=== PATIENT | female | born 1995 | race American Indian/Alaskan Native ===

== ENCOUNTER 2018-06-19 21:31 | Emergency (ER) | payer SELFPAY ==
[2018-06-19 21:38] VITALS: BP 135/73
--- NOTE | 2018-06-19 22:22 | Emergency Department Report ---
ED Female HPI - General Chief complaint: Urogenital-Female Stated complaint: PELVIC PAIN Time Seen by Provider: 06/19/18 22:18 Source: patient Mode of arrival: Ambulatory Limitations: No Limitations - History of Present Illness MD Complaint: vaginal discharge, dysuria, possible STD -: Gradual, days(s) (11) Radiation: suprapubic Severity: mild Quality: cramping, dull Improves with: none Worsens with: none Are you Now?: No (had 2 positive home test and one neg test at clinic yesterday now confused) Associated Symptoms: vaginal discharge, dysuria. denies: vaginal bleeding, abdominal pain, nausea/vomiting, loss of appetite, shortness of breath, syncope, weakness - Related Data Allergies Allergy/AdvReac Type Severity Reaction Status Date / Time No Known Allergies Allergy Verified 06/19/18 21:42 ED Review of Systems ROS: Stated complaint: PELVIC PAIN Other details as noted in HPI Constitutional: denies: chills, fever Eyes: denies: eye pain, eye discharge, vision change ENT: denies: ear pain, throat pain Respiratory: denies: cough, shortness of breath, wheezing Cardiovascular: denies: chest pain, palpitations Endocrine: no symptoms reported Gastrointestinal: denies: abdominal pain, nausea, diarrhea Genitourinary: urgency, dysuria, discharge Musculoskeletal: denies: back pain, joint swelling, arthralgia Skin: denies: rash, lesions Neurological: denies: headache, weakness, paresthesias Psychiatric: denies: anxiety, depression Hematological/Lymphatic: denies: easy bleeding, easy bruising ED Past Medical Hx - Past Medical History Previous Medical History?: No - Surgical History Past Surgical History?: No - Social History Smoking Status: Never Smoker Substance Use Type: None ED Physical Exam - General Limitations: No Limitations General appearance: alert, in no apparent distress - Head Head exam: Present: atraumatic, normocephalic - Eye Eye exam: Present: normal appearance, PERRL, EOMI - ENT ENT exam: Present: normal exam, mucous membranes moist - Neck Neck exam: Present: normal inspection - Respiratory Respiratory exam: Present: normal lung sounds bilaterally. Absent: respiratory distress - Cardiovascular Cardiovascular Exam: Present: regular rate, normal rhythm. Absent: systolic murmur, diastolic murmur, rubs, gallop - GI/Abdominal GI/Abdominal exam: Present: soft, normal bowel sounds - External exam: Present: erythema. Absent: lesions, lacerations, ecchymosis, bleeding Speculum exam: Present: vaginal discharge Bi-manual exam: Present: normal bi-manual exam. Absent: cervical motion tendernes - Extremities Exam Extremities exam: Present: normal inspection - Back Exam Back exam: Present: normal inspection - Neurological Exam Neurological exam: Present: alert, oriented X3 - Psychiatric Psychiatric exam: Present: normal affect, normal mood - Skin Skin exam: Present: warm, dry, intact, normal color. Absent: rash ED Course Vital Signs 06/19/18 06/19/18 21:37 21:43 Temperature 98.8 F 98.8 F Pulse Rate 100 H 96 H Respiratory 18 18 Rate Blood Pressure 135/73 Blood Pressure 135/73 [Right] O2 Sat by Pulse 96 100 Oximetry ED Medical Decision Making - Medical Decision Making 22-year-old female past discharge which she states that respond to the initial Flagyl treatment was provided by her doctor for Drew with no with a phone consultation. Worried about an STD as it turns out from further discussion after I had advised her of her negative wet prep panel. She was also very concerned about a tendency tinnitus which yielded to be negative to date. This point, I will cover her with a Rocephin and Zithromax cocktail and about. He'll follow with BRAZING MACHINE TENDER for further evaluation. She also stated during our discussion, which she initially felt to mention that she just had a control removed from her right arm a few weeks ago and was a little bit frustrated as she had not yet had a period which was the primary reason for her so much she was . I advised her he did have a discussion about hormones and the fluctuation. He also is involved with limitation of control and I stressed again the importance of follow-up with an BRAZING MACHINE TENDER for definitive management and reevaluation. Also advised her to be patient with a onset of menses as she just had a recent removal of the Norplant from her right arm Critical care attestation.: If time is entered above; I have spent that time in minutes in the direct care of this critically ill patient, excluding procedure time. ED Disposition Clinical Impression: Vaginal discharge, Negative test Disposition: - TO HOME OR SELFCARE Is pt being admited?: No Does the pt Need Aspirin: No Condition: Stable Instructions: Vaginitis (ED) Referrals: JACE HARRISON MD [Primary Care Provider] - 3-5 Days [facility] [Provider Group] - 3-5 Days
[2018-06-19 22:46] LABS: HCG Qualitative,Urine Negative (Negative)
[2018-06-19 22:52] LABS: Bilirubin,Urine NEG (Negative); Blood,Urine NEG (Negative); Color,Urine Yellow (Yellow); Protein,Urine <15 mg/dL mg/dL (Negative); Urobilinogen,Urine < 2.0 mg/dL (<2.0)
[2018-06-20] MEDS ORDERED: ZITHROMAX PO STA (01:21)
[2018-06-20] MEDS ORDERED: ROCEPHIN IM STA (01:21)
[2018-06-20] MEDS ORDERED: XYLOCAINE 1% MPF 5 mL INFILTRATI ONE (01:21)
== END 2018-06-20 02:14 | disposition home or self-care (01) ==
LOC: ED 21:31
DX: N89.8 Other specified noninflammatory disorders of vagina (principal); Z32.02 Encounter for pregnancy test, result negative
CPT/HCPCS: 36415; 81001; 81025; 84702; 87210; 87591; 96372; 99284; J0696

== ENCOUNTER 2018-08-03 21:40 | Emergency (ER) | payer OTHER ==
[2018-08-03 23:50] LABS: Bilirubin,Urine NEG (Negative); Blood,Urine NEG (Negative); Color,Urine Yellow (Yellow); Mucus,Urine 3+ /HPF; Protein,Urine <15 mg/dL mg/dL (Negative); Urobilinogen,Urine < 2.0 mg/dL (<2.0)
[2018-08-04 00:04] LABS: HCG Qualitative,Urine Negative (Negative)
--- NOTE | 2018-08-04 01:41 | Emergency Department Report ---
ED Female HPI - General Chief complaint: Urogenital-Female Stated complaint: VAGINAL DISCHARGE RASH ODOR Time Seen by Provider: 08/04/18 00:12 Source: patient Mode of arrival: Ambulatory Limitations: No Limitations - History of Present Illness Initial comments: 22-year-old -Maldivian female presents to the emergency room for vaginal discharge rash and bleeding cramping and older 2 months. Patient reports that she was seen here in May and was told to try [id number] Monistat she's reports has not helped. Patient reports her last menstrual period was 07/22/2018. Patient reports she has not been sexually active since she was last seen here in May. She does report having a primary care provider but reports that she is not able to take also in the day at work so she has come tonight to be evaluated. MD Complaint: vaginal discharge -: month(s) (2) Quality: cramping Consistency: intermittent Improves with: none Worsens with: none Are you Now?: No Last Menstrual Period: 07/22/18 EDC: 04/28/19 Associated Symptoms: vaginal discharge - Related Data Sexually active: Yes : 0 Previous Rx's Medication Instructions Recorded Last Taken Type Fluconazole [Diflucan] 150 mg PO QDAY 1 Days #1 tablet 08/04/18 Unknown Rx metroNIDAZOLE [Metronidazole] 500 mg PO Q8H 7 Days #21 tablet 08/04/18 Unknown Rx Allergies Allergy/AdvReac Type Severity Reaction Status Date / Time No Known Allergies Allergy Verified 06/19/18 21:42 ED Review of Systems ROS: Stated complaint: VAGINAL DISCHARGE RASH ODOR Other details as noted in HPI Comment: All other systems reviewed and negative Genitourinary: discharge ED Past Medical Hx - Past Medical History Previous Medical History?: No - Surgical History Past Surgical History?: No - Social History Smoking Status: Never Smoker Substance Use Type: None - Medications Home Medications: Home Medications Medication Instructions Recorded Confirmed Last Taken Type Fluconazole [Diflucan] 150 mg PO QDAY 1 Days #1 tablet 08/04/18 Unknown Rx metroNIDAZOLE [Metronidazole] 500 mg PO Q8H 7 Days #21 tablet 08/04/18 Unknown Rx ED Physical Exam - General Limitations: No Limitations General appearance: alert, in no apparent distress - Head Head exam: Present: atraumatic, normocephalic - Eye Eye exam: Present: normal appearance - ENT ENT exam: Present: mucous membranes moist - Neck Neck exam: Present: normal inspection - Respiratory Respiratory exam: Present: normal lung sounds bilaterally. Absent: respiratory distress - Cardiovascular Cardiovascular Exam: Present: regular rate, normal rhythm. Absent: systolic murmur, diastolic murmur, rubs, gallop - GI/Abdominal GI/Abdominal exam: Present: soft, normal bowel sounds - External exam: Present: other (rash) Speculum exam: Present: vaginal discharge. Absent: erythema Bi-manual exam: Present: normal bi-manual exam - Extremities Exam Extremities exam: Present: full ROM - Back Exam Back exam: Present: normal inspection - Neurological Exam Neurological exam: Present: alert, oriented X3 - Psychiatric Psychiatric exam: Present: normal affect, normal mood - Skin Skin exam: Present: warm, dry, intact, normal color. Absent: rash ED Course Vital Signs 08/03/18 22:20 Temperature 98.1 F Pulse Rate 84 Respiratory 18 Rate Blood Pressure 122/69 O2 Sat by Pulse 98 Oximetry ED Medical Decision Making - Lab Data Laboratory Tests 08/03/18 Unknown Urine Color Yellow Urine Turbidity Clear Urine pH 5.0 Ur Specific [place] 1.034 H Urine Protein <15 mg/dl Urine Glucose (UA) Neg Urine Ketones Neg Urine Blood Neg Urine Nitrite Neg Urine Bilirubin Neg Urine Urobilinogen < 2.0 Ur Leukocyte Esterase Neg Urine WBC (Auto) 2.0 Urine RBC (Auto) 1.0 U Epithel Cells (Auto) 8.0 Urine Mucus 3+ Urine HCG, Qual Negative - Medical Decision Making Patient has been evaluated by this provider and [facility]. Patient went prep is positive for bacterial vaginosis and candidiasis. Patient will be treated accordingly Critical care attestation.: If time is entered above; I have spent that time in minutes in the direct care of this critically ill patient, excluding procedure time. ED Disposition Clinical Impression: Vaginitis and vulvovaginitis Disposition: DC-01 TO HOME OR SELFCARE Is pt being admited?: No Does the pt Need Aspirin: No Condition: Stable Instructions: Bacterial Vaginosis (ED), Vulvovaginal Candidiasis (ED) Additional Instructions: Please take medication as prescribed. Please follow-up with your primary care provider if her symptoms persist or gets worse. Prescriptions: Fluconazole [Diflucan] 150 mg PO QDAY 1 Days #1 tablet metroNIDAZOLE [Metronidazole] 500 mg PO Q8H 7 Days #21 tablet [facility] [Primary [facility] Provider[facility] - 3-5 Days
[2018-08-04 02:13] VITALS: BP 120/64
== END 2018-08-04 02:13 | disposition home or self-care (01) ==
LOC: ED 21:40
DX: N76.0 Acute vaginitis (principal)
CPT/HCPCS: 81001; 81025; 87210; 87591

== ENCOUNTER 2019-07-23 23:38 | Emergency (ER) | payer SELFPAY ==
[2019-07-24] MEDS ORDERED: SODIUM CHLORIDE 0.9% 1000 ML 1,000 ML IV ONE ×2 (00:22→01:50)
--- NOTE | 2019-07-24 00:23 | Emergency Department Report ---
ED Fever HPI - General Chief Complaint: Sore Throat Stated Complaint: SORE THROAT VOMITING FEVER CONSTIPATION Time Seen by Provider: 07/24/19 00:11 Source: patient Exam Limitations: no limitations - History of Present Illness Initial Comments: Patient is a 23-year-old female that presents emergency room with complaints of sore throat, nausea vomiting, fever. Patient states she is also having constipation. Patient denies abdominal pain. Patient denies blood in her vomitus. Patient states that she has not been able to hold anything down for 2 full days. Patient states her throat pain is a 10 out of 10. Patient states that it is worse with swallowing and eating. Patient states is better with rest. Patient states her fever is low-grade. Patient denies taking any type of [id number] medications. Patient denies travel outside the country. Patient denies contact with people who have traveled to [place]. Fever Severity/Quality: low grade Fever Therapy BUDGET CLERK: none Associated Symptoms: cough, nausea/vomiting, sore throat. denies: abdominal pain, chest pain, confusion, diaphoresis, headache, muscle aches, rash, shortness of breath, stiff neck, syncope, weakness ED Review of Systems ROS: Stated complaint: SORE THROAT VOMITING FEVER CONSTIPATION Other details as noted in HPI Constitutional: chills, fever Eyes: denies: eye pain, eye discharge, vision change ENT: throat pain. denies: ear pain Respiratory: cough. denies: shortness of breath, wheezing Cardiovascular: denies: chest pain, palpitations Endocrine: no symptoms reported Gastrointestinal: nausea, vomiting, constipation. denies: abdominal pain, diarrhea Genitourinary: denies: urgency, dysuria, discharge Musculoskeletal: denies: back pain, joint swelling, arthralgia Skin: denies: rash, lesions Neurological: denies: headache, weakness, paresthesias Psychiatric: denies: anxiety, depression Hematological/Lymphatic: denies: easy bleeding, easy bruising ED Past Medical Hx - Past Medical History Previous Medical History?: No - Surgical History Past Surgical History?: No - Family History Family history: no significant - Social History Smoking Status: Never Smoker Substance Use Type: None - Medications Home Medications: Home Medications Medication Instructions Recorded Confirmed Last Taken Type Fluconazole [Diflucan] 150 mg PO QDAY 1 Days #1 tablet 08/04/18 Unknown Rx metroNIDAZOLE [Metronidazole] 500 mg PO Q8H 7 Days #21 tablet 08/04/18 Unknown Rx Azithromycin [Zithromax Tri-Isidro] 500 mg PO DAILY 3 Days #3 tablet 07/24/19 Unknown Rx Ondansetron [Zofran Odt] 4 mg PO Q6HR PRN #20 tab.rapdis 07/24/19 Unknown Rx methylPREDNISolone [Medrol 4MG 4 mg PO DAILY 6 Days #1 tab.ds.pk 07/24/19 Unknown Rx DOSEPAK (21 tabs)] ED Physical Exam - General Limitations: No Limitations General appearance: alert, in no apparent distress - Head Head exam: Present: atraumatic, normocephalic - Eye Eye exam: Present: normal appearance - ENT ENT exam: Present: mucous membranes dry, other - Expanded ENT Exam Expanded Throat exam: Positive: tonsillar erythema, other (Oropharynx redness.). Negative: tonsillomegaly, tonsillar exudate, R peritonsillar mass, L peritonsillar mass - Neck Neck exam: Present: normal inspection - Respiratory Respiratory exam: Present: normal lung sounds bilaterally. Absent: respiratory distress, wheezes, rales, rhonchi, stridor, chest wall tenderness, accessory muscle use, decreased breath sounds - Cardiovascular Cardiovascular Exam: Present: regular rate, normal rhythm. Absent: systolic murmur, diastolic murmur, rubs, gallop - GI/Abdominal GI/Abdominal exam: Present: soft, normal bowel sounds - Extremities Exam Extremities exam: Present: normal inspection - Back Exam Back exam: Present: normal inspection - Neurological Exam Neurological exam: Present: alert, oriented X3 - Psychiatric Psychiatric exam: Present: normal affect, normal mood - Skin Skin exam: Present: warm, dry, intact, normal color. Absent: rash ED Course Vital Signs 07/23/19 07/24/19 07/24/19 23:45 00:15 00:30 Temperature 99.9 F H Pulse Rate 146 H 135 H 135 H Respiratory 18 13 25 H Rate Blood Pressure 118/80 143/87 127/83 O2 Sat by Pulse 95 97 96 Oximetry - Reevaluation(s) Reevaluation #1: Initial evaluation done. EKG shows sinus tachycardia. Patient will be given fluids. 07/24/19 00:11 Reevaluation #2: Full started and patient's heart rate is already decreased. 07/24/19 00:39 Heart rate at 125. Patient states she is feeling a little bit better. 07/24/19 01:03 Reevaluation #3: Patient's heart rate continues to improve. Patient states she does not have any vomiting but would like something to help with nausea and her throat pain. 07/24/19 01:49 Reevaluation #4: Patient states she is feeling much better. Patient denies fever. Patient den ies pain. Patient states her throat is almost pain-free. Patient stable for discharge. I discussed all results with patient. Discussed plan of care with patient. Patient agrees with plan of care. Patient will be discharged home. Patient stable for discharge. Patient given discharge instructions. Patient voiced understanding of discharge instructions. 07/24/19 03:23 ED Medical Decision Making - Lab Data Result diagrams: 07/24/19 00:32 07/24/19 00:32 - EKG Data -: EKG Interpreted by Me EKG shows normal: sinus rhythm, axis, intervals, QRS complexes, ST-T waves Rate: tachycardia - Medical Decision Making Patient is a 23-year-old female that presents emergency room with complaints of fever, sore throat, cough. Patient found to have a severely red throat on examination. Patient also found to have sinus tachycardia with a rate of 42 on initial EKG. Patient was given 2 L of fluids and her heart rate responded well. Patient's pain almost resolved just prior to discharge. Patient given a Z-Isidro and steroids for her pharyngitis. Patient's fever improved with treatment. Patient's labs essentially unremarkable. Patient's flu negative. Patient strep and mono negative. Patient stable for discharge and discharged home. - Differential Diagnosis URI, pharyngitis, strep, flu, tachycardia, dehydration Critical Care Time: Yes Critical care time in (mins) excluding proc time.: 35 Critical care attestation.: If time is entered above; I have spent that time in minutes in the direct care of this critically ill patient, excluding procedure time. Critical Care Time: 35 minutes ED Disposition Clinical Impression: Tachycardia, Sore throat, Dehydration, Nausea Pharyngitis Qualifiers: Pharyngitis/tonsillitis etiology: other specified organisms Qualified Code(s): J02.8 - Acute pharyngitis due to other specified organisms Fever Qualifiers: Fever type: unspecified Qualified Code(s): R50.9 - Fever, unspecified Disposition: DC-01 TO HOME OR SELFCARE Is pt being admited?: No Does the pt Need Aspirin: No Condition: Stable Instructions: Pharyngitis (ED), Fever in Adults (ED), Dehydration (ED) Additional Instructions: Patient to follow-up with primary care in 2 to 3 days. Patient to rest. Patient to increase water. Patient to take Tylenol or ibuprofen as needed for pain. Patient to take meds as directed. Patient to return to the ER if condition worsens, changes or new symptoms arise. Prescriptions: methylPREDNISolone [Medrol 4MG DOSEPAK (21 tabs)] 4 mg PO DAILY 6 Days #1 tab.ds.pk Azithromycin [Zithromax Tri-Siidro] 500 mg PO DAILY 3 Days #3 tablet Ondansetron [Zofran Odt] 4 mg PO Q6HR PRN #20 tab.rapdis PRN Reason: Nausea And Vomiting Referrals: NADJA SEGURA MD [Staff Physician] - 2-3 Days Time of Disposition: 03:30
[2019-07-24 00:57] LABS: Hematocrit 41.5 % (30.3-42.9); Hemoglobin 13.8 gm/dl (10.1-14.3); Mean Corpuscular HGB Conc 33 % (30-34); Mean Corpuscular Volume 80 fl (79-97); Platelet Count 201 K/mm3 (140-440); Red Blood Count 5.17 M/mm3 (3.65-5.03); Red Cell Distribution Width 13.3 % (13.2-15.2)
[2019-07-24 01:21] LABS: Alanine Aminotransferase 25 units/L (7-56); Albumin 4.5 g/dL (3.9-5); BUN/Creatinine Ratio 13; Blood Urea Nitrogen 9 mg/dL (7-17); Calcium 9.7 mg/dL (8.4-10.2); Hemolysis Index 7
[2019-07-24] MEDS ORDERED: KETOROLAC 30 MG/1 ML INJ IV ONE (01:50)
[2019-07-24] MEDS ORDERED: ONDANSETRON 4 MG/2 ML INJ IV ONE (01:50)
[2019-07-24] MEDS ORDERED: ONDANSETRON 4 MG/2 ML INJ ONE (01:51)
[2019-07-24 03:26] VITALS: BP 121/66
== END 2019-07-24 04:30 | disposition home or self-care (01) ==
LOC: ED 23:38
DX: E86.0 Dehydration (principal); R00.0 Tachycardia, unspecified; J02.9 Acute pharyngitis, unspecified; R50.9 Fever, unspecified; R11.2 Nausea with vomiting, unspecified; Z79.899 Other long term (current) drug therapy
CPT/HCPCS: 36415; 80053; 84703; 85027; 86308; 87116; 87400; 87430; 93005; 93010; 96361; 96374; 96375; 99283; J1885; J2405; J7030

== ENCOUNTER 2020-07-07 20:40 | Emergency (ER) | payer SELFPAY ==
[2020-07-07 22:11] LABS: Basophils % (Auto) 0.4 % (0.0-1.8); Eosinophils # (Auto) 0.2 K/mm3 (0.0-0.4); Hematocrit 44.5 % (30.3-42.9); Hemoglobin 14.7 gm/dl (10.1-14.3); Lymphocytes % (Auto) 25.4 % (13.4-35.0); Mean Corpuscular HGB Conc 33 % (30-34); Mean Corpuscular Volume 82 fl (79-97); Monocytes # (Auto) 0.6 K/mm3 (0.0-0.8); Monocytes % (Auto) 7.8 % (0.0-7.3); Platelet Count 256 K/mm3 (140-440); Red Blood Count 5.42 M/mm3 (3.65-5.03)
[2020-07-07 22:42] LABS: Alanine Aminotransferase 18 units/L (7-56); Albumin 4.9 g/dL (3.9-5); Blood Urea Nitrogen 13 mg/dL (7-17); Calcium 10.2 mg/dL (8.4-10.2); Hemolysis Index 3
[2020-07-07 22:43] LABS: BUN/Creatinine Ratio 22
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
[2020-07-07 22:58] LABS: Bilirubin,Urine NEG (Negative); Blood,Urine NEG (Negative); Color,Urine Yellow (Yellow); Mucus,Urine FEW /HPF; Protein,Urine <15 mg/dL mg/dL (Negative); Urobilinogen,Urine < 2.0 mg/dL (<2.0); WBC,Urine < 1.0 /HPF (0.0-6.0)
[2020-07-07 23:49] LABS: Creatine Kinase MB < 1.0 ng/mL (0.0-4.0)
--- NOTE | 2020-07-08 02:40 | Ultrasound Report ---
ULTRASOUND OBSTETRIC INDICATION / CLINICAL INFORMATION: , lower abdominal pain, syncope. TECHNIQUE: Transabdominal. COMPARISON: None available. FINDINGS: No IUP. ADNEXA: Complex right ovarian corpus luteal cyst measures 2.1 x 2.2 x 2.0 cm. Complex left ovarian co rpus luteal cyst measures 5.4 x 5.0 x 4.5 cm containing internal debris and septations. FREE FLUID: None. ADDITIONAL FINDINGS: None. IMPRESSION: 1. No visualized IUP. 2. Complex bilateral ovarian corpus luteal cysts Signer Name: Anuj Wayne MD Signed: 07/08/2020 2:35 AM Workstation Name: [id number]
[2020-07-08 03:32] VITALS: BP 115/81
== END 2020-07-08 03:28 ==
LOC: ED 20:40
DX: O26.891 Other specified pregnancy related conditions, first trimester (principal); R55 Syncope and collapse; Z79.899 Other long term (current) drug therapy; Z3A.01 Less than 8 weeks gestation of pregnancy
CPT/HCPCS: 36415; 76801; 80053; 81001; 82550; 82553; 83690; 84484; 84702; 84703; 85025; 85379; 93005

== ENCOUNTER 2020-07-20 12:21 | Emergency (ER) | payer OTHER ==
--- NOTE | 2020-07-20 14:04 | Emergency Department Report ---
<SWATHIJanieANNTeddy Rutherford - Last Filed: 07/20/20 14:02> ED Female HPI - General Chief complaint: Vaginal Bleeding Stated complaint: PREG/BLEEDING/SEEN HERE LAST WEEK Source: patient Mode of arrival: Ambulatory Limitations: No Limitations - History of Present Illness Initial comments: 24-year-old -[place] female who is 1 para 0 with a last m enstrual period of 06/13/2020 presents to the emergency room complaining of lower abdominal pain with vaginal spotting. Patient was seen here 2 weeks ago and was having very heavy menstrual bleeding. Patient never followed up with provider stating that her Medicaid was not active. Patient comes in complaining of burning with urination. MD Complaint: vaginal bleeding, pelvic pain - Related Data Previous Rx's Medication Instructions Recorded Last Taken Type Fluconazole [Diflucan] 150 mg PO QDAY 1 Days #1 tablet 08/04/18 Unknown Rx metroNIDAZOLE [Metronidazole] 500 mg PO Q8H 7 Days #21 tablet 08/04/18 Unknown Rx Azithromycin [Zithromax Tri-Isidro] 500 mg PO DAILY 3 Days #3 tablet 07/24/19 Unknown Rx Ondansetron [Zofran Odt] 4 mg PO Q6HR PRN #20 tab.rapdis 07/24/19 Unknown Rx methylPREDNISolone [Medrol 4MG 4 mg PO DAILY 6 Days #1 tab.ds.pk 07/24/19 Unknown Rx DOSEPAK (21 tabs)] cephALEXin [Keflex] 500 mg PO Q8HR #21 capsule 07/20/20 Unknown Rx Allergies Allergy/AdvReac Type Severity Reaction Status Date / Time No Known Allergies Allergy Verified 07/20/20 13:21 ED Review of Systems Comment: All other systems reviewed and negative ED Past Medical Hx - Past Medical History Previous Medical History?: No - Surgical History Past Surgical History?: No - Social History Smoking Status: Never Smoker Substance Use Type: None (Denies illicit drug use) - Medications Home Medications: Home Medications Medication Instructions Recorded Confirmed Last Taken Type Fluconazole [Diflucan] 150 mg PO QDAY 1 Days #1 tablet 08/04/18 Unknown Rx metroNIDAZOLE [Metronidazole] 500 mg PO Q8H 7 Days #21 tablet 08/04/18 Unknown Rx Azithromycin [Zithromax Tri-Isidro] 500 mg PO DAILY 3 Days #3 tablet 07/24/19 Unknown Rx Ondansetron [Zofran Odt] 4 mg PO Q6HR PRN #20 tab.rapdis 07/24/19 Unknown Rx methylPREDNISolone [Medrol 4MG 4 mg PO DAILY 6 Days #1 tab.ds.pk 07/24/19 Unknown Rx DOSEPAK (21 tabs)] cephALEXin [Keflex] 500 mg PO Q8HR #21 capsule 07/20/20 Unknown Rx ED Physical Exam - General Limitations: No Limitations ED Medical Decision Making - Medical Decision Making 24-year-old -[place] female who is 1 para 0 with a last menstrual period of 06/13/2020 presents to the emergency room complaining of lower abdominal pain with vaginal spotting. Patient was seen here 2 weeks ago and was having very heavy menstrual bleeding. Patient never followed up with provider stating that her Medicaid was not active. Patient comes in complaining of burning with urination. ED Disposition Clinical Impression: Threatened miscarriage in early , UTI (urinary tract infection) Disposition: TO HOME OR SELFCARE Condition: Stable Instructions: Urinary Tract Infection, Adult, [id number], Threatened Miscarriage, [id number] Additional Instructions: You can take tylenol as needed for pain. Take the antibiotics as prescribed. Follow up with [facility] in 2 days for repeat Quant HCG and repeat US, if unable to f/u return to ED in 2 days. Return sooner if symptoms worsens. Prescriptions: cephALEXin [Keflex] 500 mg PO Q8HR #21 capsule Referrals: PRIMARY CARE, [Primary Care Provider] - 3-5 Days Forms: Work/School Release Form(ED) <DARYL CASTRO - Last Filed: 07/21/20 02:13> ED Review of Systems ROS: Stated complaint: PREG/BLEEDING/SEEN HERE LAST WEEK Other details as noted in HPI ED Course Vital Signs 07/20/20 07/20/20 13:23 21:56 Temperature 98.4 F Pulse Rate 95 H 80 Respiratory 18 18 Rate Blood Pressure 131/76 Blood Pressure 124/84 [Right] O2 Sat by Pulse 100 100 Oximetry ED Medical Decision Making - Radiology Data Radiology results: report reviewed Findings [facility] [address] [place] [address] Ultrasound Report Signed Patient: JEAN CLAUDE GONZALEZ MR#: [id number] : 1995 Acct:[id number] Age/Sex: 24 / F ADM Date: 07/20/20 Loc: ED Attending Dr: Ordering Physician: TITI AVILA Date of Service: 07/20/20 Procedure(s): US OB <= 14 weeks fetus Accession Number(s): [id number] cc: TITI AVILA OB Ultrasound HISTORY: lower abdominal pain. TECHNIQUE: Grayscale and color imaging performed. COMPARISON: OB ultrasound from 07/08/2020 FINDINGS: Uterus measures 9.6 x 4.5 x 6.1 cm with endometrial echocomplex appearing thickened and measuring 2.1 cm. There is a small cystic structure in the uterine fundal region with diameter of 8 mm which would correspond with an EGA of 5 weeks and 4 days. No pole or heart rate identified. There is also a crescentic slightly hypoechoic structure adjacent to this possible gestational sac measuring 2.1 cm in maximal dimension which may represent a small subchorionic hemorrhage. Right ovary measures 5.7 x 2.9 x 4.6 cm and contains a simple cyst measuring 2.9 cm in maximal dimension. Left ovary measures 8.4 x 8.6 x 8.2 cm with a simple cyst measuring 7.5 cm in maximal dimension. No significant pelvic free fluid identified. IMPRESSION: 1. Intrauterine cystic structure with no pole could represent an early gestational sac. Correlate with beta hCG level and serial ultrasound as indicated. Irregular adjacent hypoechoic structure may represent a subchorionic hemorrhage. 2. Simple bilateral ovarian cysts. Signer Name: Reno Garrison MD Signed: 07/20/2020 5:39 PM Workstation Name: [id number] Transcribed By: RIP Dictated By: Reno Garrison MD Electronically Authenticated By: Reno Garrison MD Signed Date/Time: 07/20/201738 DD/ 35 TD/TT: - Medical Decision Making 2031: Patient was initially seen by Ann Sim. She turned over the case to Harrison MAYES at shift change which was about 1730. US was pending. Per nurse and Harrison patient was called several times for re-assessment but no there was no answer from patient and she was assumed to have Eloped. Then around 2031, nurse brought chart to me stating that they had found patient in waiting room and nurse requested that I see patient. Patient reported to me that she has been having intermittent lower abd cramping x 2 weeks but she started with spotting today. She states since she has been in ER spotting has resolved. She also reports dysuria. She is G1 P 0. Her last MC was 06/13/20. She states she is still waiting to get approved for her medicaid and therefore has not had a appointment as yet but she is hoping to go to [facility]. 2154: patient well appearing, not toxic, and not in any distress. She neurologically intact with normal gait in ED. She appears well hydrated. Repeat VS stable. Mild diffuse lower abd ttp but abd soft without guarding, rigidity or rebound. Labs/US reviewed. Quant now 3798 compared to 33.71 on 07/07/20. Ultrasound today shows Intrauterine cystic structure with no pole could represent an early gestational sac. Correlate with beta hCG level and serial ultrasound as indicated. Irregular adjacent hypoechoic structure may represent a subchorionic hemorrhage. 2. Simple bilateral ovarian cysts. UA concerning for UTI. Urine culture is pending. RhoGam is A positive so no indication for any RhoGam at this time. Discussed lab results and ultrasound results with patient. Recommend that she follows up with outside medical in the next 2 days for repeat quant and repeat ultrasound. Also informed her of the concern for possible UTI and that she will be started on antibiotics. Discussed the suspected diagnosis with patient. She is not toxic, not ill-appearing, and currently in no acute distress. Her vital signs have been stable. She is neurologically intact with a normal gait. She appears well-hydrated. No indication for any further work-up, admission or emergent consult at this time. Patient expressed understanding of instructions and agree with plan. Patient was stable at time of discharge. Critical care attestation.: If time is entered above; I have spent that time in minutes in the direct care of this critically ill patient, excluding procedure time. ED Disposition Is pt being admited?: No Does the pt Need Aspirin: No Time of Disposition: 21:48
[2020-07-20 14:28] LABS: Bacteria,Urine 2+ /HPF (Negative); Bilirubin,Urine NEG (Negative); Blood,Urine NEG (Negative); Color,Urine Yellow (Yellow); Mucus,Urine 3+ /HPF; Protein,Urine <15 mg/dL mg/dL (Negative)
--- NOTE | 2020-07-20 17:44 | Ultrasound Report ---
OB Ultrasound HISTORY: lower abdominal pain. TECHNIQUE: Grayscale and color imaging performed. COMPARISON: OB ultrasound from 07/08/2020 FINDINGS: Uterus measures 9.6 x 4.5 x 6.1 cm with endometrial echocomplex appearing thickened and nakita suring 2.1 cm. There is a small cystic structure in the uterine fundal region with diameter of 8 mm w hich would correspond with an EGA of 5 weeks and 4 days. No pole or heart rate identified. Ther e is also a crescentic slightly hypoechoic structure adjacent to this possible gestational sac measur ing 2.1 cm in maximal dimension which may represent a small subchorionic hemorrhage. Right ovary measures 5.7 x 2.9 x 4.6 cm and contains a simple cyst measuring 2.9 cm in maximal dimens ion. Left ovary measures 8.4 x 8.6 x 8.2 cm with a simple cyst measuring 7.5 cm in maximal dimension. No significant pelvic free fluid identified. IMPRESSION: 1. Intrauterine cystic structure with no pole could represent an early gestational sac. Correla te with beta hCG level and serial ultrasound as indicated. Irregular adjacent hypoechoic structure ma y represent a subchorionic hemorrhage. 2. Simple bilateral ovarian cysts. Signer Name: Reno Garrison MD Signed: 07/20/2020 5:39 PM Workstation Name: [id number]
[2020-07-20 21:57] VITALS: BP 124/84
== END 2020-07-20 21:56 | disposition home or self-care (01) ==
LOC: ED 12:21
DX: O20.0 Threatened abortion (principal); O23.41 Unspecified infection of urinary tract in pregnancy, first trimester; Z3A.01 Less than 8 weeks gestation of pregnancy; Z79.2 Long term (current) use of antibiotics; Z79.899 Other long term (current) drug therapy
CPT/HCPCS: 36415; 76801; 76817; 81001; 84702; 85461; 86850; 86900; 86901; 87086

== ENCOUNTER 2020-12-17 10:44 | Outpatient (CLI) | payer OTHER ==
[2020-12-17 11:16] VITALS: BP 99/65
[2020-12-17] MEDS ORDERED: LACTATED RINGERS 1,000 ML IV ONE (11:30)
[2020-12-17 11:58] LABS: Bacteria,Urine 3+ /HPF (Negative); Bilirubin,Urine NEG (Negative); Blood,Urine NEG (Negative); Color,Urine Yellow (Yellow); Hyaline Casts,Urine 1 /LPF; Mucus,Urine FEW /HPF; Urobilinogen,Urine < 2.0 mg/dL (<2.0)
[2020-12-17] MEDS ORDERED: ONDANSETRON 4 MG/2 ML INJ IV ONE (11:59)
[2020-12-17] MEDS ORDERED: BICITRA ORAL LIQD 30ML PO ONE (12:00)
[2020-12-17] MEDS ORDERED: NIFEdipine*For Tocolysis only* 10 MG CAPSULE PO ONE (13:30)
== END 2020-12-17 14:23 | disposition home or self-care (01) ==
LOC: APU 10:44 → TRG 10:44 → APU 10:49 → TRG 14:23
PROVIDERS: ATTEND Obstetrics & Gynecology
DX: O21.2 Late vomiting of pregnancy (principal); O99.342 Other mental disorders complicating pregnancy, second trimester; F41.9 Anxiety disorder, unspecified; F32.9 Major depressive disorder, single episode, unspecified; O26.892 Other specified pregnancy related conditions, second trimester; M54.9 Dorsalgia, unspecified; Z3A.26 26 weeks gestation of pregnancy
CPT/HCPCS: 59025; 81001; 96361; 96365; J2405; J7120; 96360

== ENCOUNTER 2021-02-26 05:35 | Outpatient (CLI) | payer OTHER ==
[2021-02-26 05:43] VITALS: BP 122/73
[2021-02-26] MEDS ORDERED: LACTATED RINGERS 1,000 ML IV ONE (06:00)
[2021-02-26 06:56] LABS: Bilirubin,Urine NEG (Negative); Blood,Urine NEG (Negative); Color,Urine Yellow (Yellow); Mucus,Urine 2+ /HPF; Urobilinogen,Urine < 2.0 mg/dL (<2.0)
== END 2021-02-26 08:50 | disposition home or self-care (01) ==
LOC: TRG 05:35 → APU 05:36 → TRG 08:50
PROVIDERS: ATTEND Obstetrics & Gynecology
DX: Z34.93 Encounter for supervision of normal pregnancy, unspecified, third trimester (principal); Z3A.36 36 weeks gestation of pregnancy
CPT/HCPCS: 36415; 59025; 81001; 84112

== ENCOUNTER 2021-03-01 06:57 | Outpatient (CLI) | payer OTHER ==
[2021-03-01 07:59] VITALS: BP 124/73
--- NOTE | 2021-03-01 10:29 | Ultrasound Report ---
ULTRASOUND BIOPHYSICAL PROFILE INDICATION: BPP. well-being COMPARISON: 12/25/2020 FINDINGS: heart rate is 151 beats per minute. breathing movement = 2 Gross body movement = 2 tone = 2 Qualitative amniotic fluid volume = 2 Additional findings: Cephalic presentation. IMPRESSION: biophysical profile = 12/27 Signer Name: Domingo Winchester Jr, MD Signed: 03/01/2021 10:25 AM Workstation Name: [id number]
== END 2021-03-01 10:00 | disposition home or self-care (01) ==
LOC: TRG 06:57 → APU 06:58 → TRG 10:00
PROVIDERS: ATTEND Obstetrics & Gynecology
DX: Z34.93 Encounter for supervision of normal pregnancy, unspecified, third trimester (principal); Z3A.37 37 weeks gestation of pregnancy
CPT/HCPCS: 59025; 76819